=== PATIENT | female | born 1965 | race Caucasian/White ===

== ENCOUNTER 2017-09-18 10:41 | Outpatient (CLI) | payer OTHER ==
--- NOTE | 2017-09-20 14:08 | MMO ---
BILATERAL SCREENING MAMMOGRAM: Date: 09/18/17 COMPARISON: 09/12/16 and 06/04/14. HISTORY: Screening mammography. FINDINGS: This patient's mammogram was interpreted with the assistance of computer-aided detection. The breast parenchyma is primarily fatty replaced. Benign-appearing calcification seen bilaterally. N o dominant mass or architectural distortion. No concerning microcalcifications. IMPRESSION: BIRADS 2: Benign Finding(s) Annual screening mammography recommended. POS: [facility]
== END 2017-09-18 10:42 | disposition home or self-care (01) ==
LOC: SCSMAMMO 10:41
PROVIDERS: ATTEND Family Medicine
DX: Z12.31 Encounter for screening mammogram for malignant neoplasm of breast (principal)
CPT/HCPCS: 77067

== ENCOUNTER 2023-01-22 08:43 | Outpatient (CLI) | payer OTHER | END 2023-01-22 08:44 | disposition home or self-care (01) | LOC: LABBT 08:43 | PROVIDERS: ATTEND Surgery | DX: Z01.810 Encounter for preprocedural cardiovascular examination (principal); M43.16 Spondylolisthesis, lumbar region; M48.061 Spinal stenosis, lumbar region without neurogenic claudication; M54.16 Radiculopathy, lumbar region | CPT/HCPCS: 93005; 93010 ==

== ENCOUNTER 2023-01-23 07:35 | Inpatient (IN) | payer OTHER ==
[2023-01-22 09:13] VITALS: BMI 51.7
[2023-01-22 11:49] LABS: Hematocrit 40.3 % (34.9-44.5); Hemoglobin 13.1 g/dL (12.0-15.5); Mean Corpuscular HGB CONC 32.5 g/dL (32.0-36.0); Mean Corpuscular Hemoglobin 28.7 pg (27.0-33.0); Mean Corpuscular Volume 88.2 fl (81.6-98.3); Mean Platelet Volume 10.6 fl (7.4-10.4); Platelet Count 228 10x3/uL (150-450); RBC Distribution Width 13.9 % (11.5-14.5); Red Blood Cell (RBC) Count 4.57 10x6/uL (3.90-5.03); White Blood Cell (WBC) Count 8.4 10x3/uL (3.5-10.5)
[2023-01-22 12:04] LABS: Anion Gap 16 mmol/L (10-20); BUN (Urea Nitrogen) 12 mg/dL (9.8-20.1); Calc. Creatinine Clearance 0 mL/min (70-130); Calcium 9.4 mg/dL (7.8-10.44); Carbon Dioxide 28 mmol/L (22-29); Chloride 102 mmol/L (98-107); Estimated GFR 101; Glucose 124 mg/dL (70-105); Potassium 3.3 mmol/L (3.5-5.1); Sodium 143 mmol/L (136-145)
[2023-01-22 12:25] LABS: PTT 26.2 sec (22.0-33.0); Prothrombin Time 10.7 sec (9.5-12.1)
[2023-01-23] MEDS ORDERED: Lidocaine 1% MPF 2 ML VIAL ONE (08:05)
[2023-01-23] MEDS ORDERED: CEFAZOLIN 2 GM VIAL ONE (08:06)
[2023-01-23] MEDS ORDERED: Sodium Chloride 0.9% 100 ML ONE (08:06)
[2023-01-23] MEDS ORDERED: Scopolamine 1.5 mg/72 hour Patch ONE (08:24)
[2023-01-23] MEDS ORDERED: Thrombin 5000 UNITS/5 ML VIAL ONE ×2 (10:13→14:05)
[2023-01-23] MEDS ORDERED: Vancomycin 1 GM VIAL ONE (10:13)
[2023-01-23] MEDS ORDERED: fentaNYL PF 100 MCG/2 ML SYRINGE ONE ×2 (10:22→15:55)
[2023-01-23] MEDS ORDERED: Dexamethasone 20 MG/5 ML VIAL ONE (10:48)
[2023-01-23] MEDS ORDERED: PHENYLEPHRINE-NS 100 MCG/ML 10 ML SYRINGE ONE (10:48)
[2023-01-23] MEDS ORDERED: PROPOFOL 200 MG/20 ML VIAL ONE (10:48)
[2023-01-23] MEDS ORDERED: Lidocaine 1% PF 5 ML VIAL ONE (10:48)
[2023-01-23] MEDS ORDERED: ePHEDrine Sulfate 50 MG/10 ML VIAL ONE ×2 (10:48→13:18)
[2023-01-23] MEDS ORDERED: Rocuronium Bromide 10 MG/ML (10ML VIAL) ONE (10:48)
[2023-01-23] MEDS ORDERED: Ondansetron PF 4 MG/2 ML Vial ONE (10:48)
[2023-01-23] MEDS ORDERED: Ketorolac Tromethamine 30 MG/ML VIAL ONE (10:48)
[2023-01-23] MEDS ORDERED: MINERAL OIL/WHITE PETROLATUM 3.5 GM TUBE ONE (10:52)
[2023-01-23] MEDS ORDERED: Rocuronium Bromide 50 MG/5 ML VIAL ONE (13:44)
[2023-01-23] MEDS ORDERED: Ondansetron HCl/PF 4 MG/2 ML Vial IVP PRN (13:57)
[2023-01-23] MEDS ORDERED: Promethazine HCl 25 MG/ML VIAL IM PRN ×2 (13:57→15:55)
[2023-01-23] MEDS ORDERED: HYDROmorphone 2 MG/ML VIAL SLOW IVP PRN (13:57)
[2023-01-23] MEDS ORDERED: Meperidine HCl/PF 25 MG/ML VIAL SLOW IVP PRN (13:57)
[2023-01-23] MEDS ORDERED: SUGAMMADEX SODIUM 200 MG/2 ML VIAL ONE (14:04)
[2023-01-23] MEDS ORDERED: diphenhydrAMINE 25 MG CAP PO PRN ×2 (15:27→15:55)
[2023-01-23] MEDS ORDERED: Acetaminophen 325 MG TAB PO PRN (15:27)
[2023-01-23] MEDS ORDERED: Ondansetron PF 4 MG/2 ML Vial IVP PRN ×2 (15:27→15:55)
[2023-01-23] MEDS ORDERED: Milk Of Magnesia 30 ML UDCUP PO PRN (15:27)
[2023-01-23] MEDS ORDERED: hydrALAZINE 20 MG/ML VIAL SLOW IVP PRN (15:31)
[2023-01-23] MEDS ORDERED: tiZANidine HCl 4 MG TAB PO PRN (15:31)
[2023-01-23] MEDS ORDERED: diphenhydrAMINE 50 MG/ML VIAL IVP PRN (15:55)
[2023-01-23] MEDS ORDERED: diphenhydrAMINE 50 MG/ML VIAL IM PRN (15:55)
[2023-01-23] MEDS ORDERED: HYDROmorphone 10 mg/100 ml CADD IVPB PRN (15:55)
[2023-01-23] MEDS ORDERED: Naloxone HCl 0.4 mg/ml Vial IV PRN (15:55)
[2023-01-23] MEDS ORDERED: Communication Order-Pharmacy FS SCH (16:00)
[2023-01-23] MEDS: Sodium Chloride 0.9% 1,000 ML IV SCH (18:40)
[2023-01-23] MEDS: CEFAZOLIN 2 GM in Sodium Chloride 0.9% 100 ML IVPB SCH (18:41)
[2023-01-23] MEDS: Ketorolac Tromethamine 30 MG/ML VIAL IVP SCH (18:41)
[2023-01-23] MEDS: Gabapentin 300 MG CAP PO SCH (22:17)
[2023-01-23] MEDS: Atorvastatin Calcium 20 MG TAB PO SCH (22:18)
[2023-01-23] MEDS: Docusate 100 MG CAP PO SCH (22:18)
[2023-01-24] MEDS: CEFAZOLIN 2 GM in Sodium Chloride 0.9% 100 ML IVPB SCH ×3 (00:33→17:06)
[2023-01-24] MEDS: Ketorolac Tromethamine 30 MG/ML VIAL IVP SCH ×2 (00:34→05:59)
[2023-01-24] MEDS: Sodium Chloride 0.9% 1,000 ML IV SCH ×3 (06:02→19:31)
[2023-01-24 06:57] LABS: #Monocytes 0.6 thou/uL (0.11-0.59); #Neutrophils 11.9 thou/uL (1.40-6.50); %Basophils 0.1 % (0.0-1.0); %Lymphocytes 9.9 % (21.0-51.0); %Neutrophils 85.6 % (42.0-75.0); Hematocrit 33.8 % (36.0-47.0); Hemoglobin 10.7 g/dL (12.0-16.0); Mean Corpuscular HGB CONC 31.7 g/dL (32.0-36.0); Mean Corpuscular Hemoglobin 28.6 pg (27.0-31.0); Mean Corpuscular Volume 90.4 fl (78.0-98.0); Mean Platelet Volume 9.4 fL (7.4-10.4); Platelet Count 264 10x3/uL (130-400); RBC Distribution Width 14.2 % (11.5-14.5); Red Blood Cell (RBC) Count 3.74 mill/uL (4.20-5.40); White Blood Cell (WBC) Count 13.9 10x3/uL (4.8-10.8)
[2023-01-24 07:21] LABS: Anion Gap 13 mmol/L (10-20); BUN (Urea Nitrogen) 11 mg/dL (9.8-20.1); Calc. Creatinine Clearance 212 mL/min (70-130); Calcium 8.4 mg/dL (7.8-10.44); Carbon Dioxide 30 mmol/L (22-29); Chloride 103 mmol/L (98-107); Estimated GFR 101; Glucose 123 mg/dL (70-105); Potassium 4.1 mmol/L (3.5-5.1); Sodium 142 mmol/L (136-145)
[2023-01-24] MEDS ORDERED: HYDROcodone/Acetaminophen 10/325 mg Tablet PO PRN (08:25)
[2023-01-24] MEDS ORDERED: Acetaminophen/Codeine 30-300mg Tablet PO PRN (08:25)
[2023-01-24] MEDS ORDERED: Morphine 2 MG/ML VIAL SLOW IVP PRN (08:25)
[2023-01-24] MEDS ORDERED: Diazepam 5 MG TAB PO PRN (08:25)
[2023-01-24] MEDS: metFORMIN 500 MG TAB PO SCH (08:39)
[2023-01-24] MEDS: Sertraline 25 MG TAB PO SCH (08:39)
[2023-01-24] MEDS: Gabapentin 300 MG CAP PO SCH ×3 (08:39→21:38)
[2023-01-24] MEDS: Docusate 100 MG CAP PO SCH ×2 (08:39→21:38)
[2023-01-24] MEDS ORDERED: FLU VACC QS2023-24(6MOS UP)/PF 60 MCG/0.5 ML SYRINGE IM ONE (09:00)
[2023-01-24] MEDS: Losartan 25 MG TAB PO SCH (10:13)
[2023-01-24] MEDS: Amlodipine 10 MG TAB PO SCH (10:13)
[2023-01-24] MEDS: Hydrochlorothiazide 25 MG TAB PO SCH (10:13)
[2023-01-24] MEDS: tiZANidine HCl 4 MG TAB PO PRN (14:49)
[2023-01-24] MEDS: Atorvastatin Calcium 20 MG TAB PO SCH (21:38)
[2023-01-25] MEDS: CEFAZOLIN 2 GM in Sodium Chloride 0.9% 100 ML IVPB SCH ×4 (00:25→23:25)
[2023-01-25] MEDS: Sodium Chloride 0.9% 1,000 ML IV SCH ×3 (01:05→20:50)
[2023-01-25] MEDS: tiZANidine HCl 4 MG TAB PO PRN ×3 (08:21→20:14)
[2023-01-25] MEDS: HYDROcodone/Acetaminophen 5/325 mg Tablet PO PRN ×2 (08:21→23:25)
[2023-01-25] MEDS: metFORMIN 500 MG TAB PO SCH (08:22)
[2023-01-25] MEDS: Docusate 100 MG CAP PO SCH ×2 (08:22→20:14)
[2023-01-25] MEDS: Amlodipine 10 MG TAB PO SCH (08:22)
[2023-01-25] MEDS: Sertraline 25 MG TAB PO SCH (08:22)
[2023-01-25] MEDS: Hydrochlorothiazide 25 MG TAB PO SCH (08:22)
[2023-01-25] MEDS: Gabapentin 300 MG CAP PO SCH ×3 (08:23→20:14)
[2023-01-25] MEDS: Losartan 25 MG TAB PO SCH (11:50)
[2023-01-25] MEDS: Atorvastatin Calcium 20 MG TAB PO SCH (20:14)
[2023-01-26] MEDS: Amlodipine 10 MG TAB PO SCH (08:18)
[2023-01-26] MEDS: Docusate 100 MG CAP PO SCH ×2 (08:18→20:10)
[2023-01-26] MEDS: Hydrochlorothiazide 25 MG TAB PO SCH (08:18)
[2023-01-26] MEDS: CEFAZOLIN 2 GM in Sodium Chloride 0.9% 100 ML IVPB SCH ×2 (08:18→16:21)
[2023-01-26] MEDS: Losartan 25 MG TAB PO SCH (08:18)
[2023-01-26] MEDS: metFORMIN 500 MG TAB PO SCH (08:19)
[2023-01-26] MEDS: Sertraline 25 MG TAB PO SCH (08:19)
[2023-01-26] MEDS: Gabapentin 300 MG CAP PO SCH ×3 (08:19→20:10)
[2023-01-26] MEDS: HYDROcodone/Acetaminophen 5/325 mg Tablet PO PRN (14:26)
[2023-01-26] MEDS: tiZANidine HCl 4 MG TAB PO PRN ×2 (14:26→20:10)
[2023-01-26] MEDS: Atorvastatin Calcium 20 MG TAB PO SCH (20:10)
[2023-01-26] MEDS: Sodium Chloride 0.9% 1,000 ML IV SCH (23:04)
[2023-01-27] MEDS: CEFAZOLIN 2 GM in Sodium Chloride 0.9% 100 ML IVPB SCH ×3 (00:29→15:50)
[2023-01-27] MEDS: HYDROcodone/Acetaminophen 5/325 mg Tablet PO PRN ×3 (00:35→14:06)
[2023-01-27] MEDS: Losartan 25 MG TAB PO SCH (07:47)
[2023-01-27] MEDS: Sertraline 25 MG TAB PO SCH (07:48)
[2023-01-27] MEDS: Gabapentin 300 MG CAP PO SCH ×2 (07:48→14:06)
[2023-01-27] MEDS: Hydrochlorothiazide 25 MG TAB PO SCH (07:48)
[2023-01-27] MEDS: metFORMIN 500 MG TAB PO SCH (07:48)
[2023-01-27] MEDS: Docusate 100 MG CAP PO SCH (07:49)
[2023-01-27] MEDS: Amlodipine 10 MG TAB PO SCH (07:49)
[2023-01-27] MEDS: Sodium Chloride 0.9% 1,000 ML IV SCH (11:03)
[2023-01-27 12:40] VITALS: BP 113/67; TEMP 99.2
== END 2023-01-27 18:00 | disposition home or self-care (01) | DRG 455 ==
LOC: SDC 07:35 → T4-B 15:32 → OBSVTOIN 01-24 08:25
PROVIDERS: ADMIT Surgery; ATTEND Surgery
PROC: 0SG00AJ Fusion of Lumbar Vertebral Joint with Interbody Fusion Device, Posterior Approach, Anterior Column, Open Approach (ICD-10-PCS; principal; 2023-01-23)
PROC: 0SG0071 Fusion of Lumbar Vertebral Joint with Autologous Tissue Substitute, Posterior Approach, Posterior Column, Open Approach (ICD-10-PCS; 2023-01-23)
PROC: 01NB0ZZ Release Lumbar Nerve, Open Approach (ICD-10-PCS; 2023-01-23)
PROC: 0SB20ZZ Excision of Lumbar Vertebral Disc, Open Approach (ICD-10-PCS; 2023-01-23)
DX: M43.16 Spondylolisthesis, lumbar region (principal); M48.062 Spinal stenosis, lumbar region with neurogenic claudication; M54.16 Radiculopathy, lumbar region
CPT/HCPCS: 36415; 80048; 85025; 85027; 85610; 85730; 86850; 86900; 86901; 90471; 90686; 93970; A4314; C1713; C1889; G0008; J1100; J1885; J2272; J2405; J2704; J3370; J3490; J7050

== ENCOUNTER 2023-10-17 14:20 | Outpatient (CLI) | payer BC | END 2023-10-17 14:21 | disposition home or self-care (01) | LOC: BICRAD 14:20 | PROVIDERS: ATTEND Family Medicine | DX: M25.512 Pain in left shoulder (principal); M19.90 Unspecified osteoarthritis, unspecified site; Z18.9 Retained foreign body fragments, unspecified material ==